=== PATIENT | male | born 1945 | race Caucasian/White ===

== ENCOUNTER → 2016-10-13 | Outpatient (CLI) | payer MEDICARE, OTHER ==
--- NOTE | 2016-10-13 16:50 | MRI ---
EXAM: Brain w/oContrast CLINICAL INDICATION: 71-year-old male with dementia. COMPARISON: None. TECHNIQUE: Multiplanar, multi-sequence MR imaging of the brain without contrast. FINDINGS: No abnormal increased signal intensity is present on diffusion-weighted imaging to suggest restricted diffusion/acute infarction. Minimal increased signal intensity present in a subcortical and periventricular deep white matter distribution, a nonspecific finding however may be seen with small vessel ischemic change. There is no evidence of intracranial hemorrhage, mass or edema. Midline structures are within normal limits. The ventricles and sulci are prominent compatible with global underlying volume loss slightly more prominent within the temporal parietal lobes. Major intracranial flow voids are identified. The paranasal sinuses and mastoid air cells are patent. IMPRESSION: 1. No abnormal increased signal intensity is present on diffusion-weighted imaging to suggest restricted diffusion/acute infarction. Electronically signed by: Beth Muhammad MD 10/13/2016 4:49 PM CDT
== END ==
LOC: MRI 08:52
PROVIDERS: ATTEND Family Medicine
DX: G45.9 Transient cerebral ischemic attack, unspecified (principal)

== ENCOUNTER → 2017-07-27 | Outpatient (CLI) | payer MEDICARE, OTHER | LOC: GMAJ 11:07 | PROVIDERS: ATTEND Family Medicine | DX: I10 Essential (primary) hypertension (principal) ==

== ENCOUNTER → 2018-09-08 | Outpatient (CLI) | payer MEDICARE, OTHER | LOC: GMAJ 11:10 | PROVIDERS: ATTEND Family Medicine | DX: I10 Essential (primary) hypertension (principal); Z12.5 Encounter for screening for malignant neoplasm of prostate | CPT/HCPCS: 84443; G0103 ==

== ENCOUNTER → 2019-07-26 | Outpatient (CLI) | payer MEDICARE, OTHER ==
--- NOTE | 2019-07-26 14:07 | MRI ---
EXAM DESCRIPTION: Cervical Spine: MRI. CLINICAL HISTORY: 74 years Male radiculopathy, cervical region COMPARISON: None. TECHNIQUE: Multiplanar, high-field MRI, multiple sequences, non-contrast Cervical spine. FINDINGS: C2-C3: Desiccation in the disc and disc space preserved. Small left uncinate spur and hypertrophic left facet arthrosis resulting in left neural foraminal stenosis. Hyperintense T2 annular fissure posterior right disc margin but no disc bulge. Canal and right neuroforamen are patent. Negative right facet joint. C3-C4: Disc desiccation with disc space preserved. Hypertrophic degenerated right facet joint. Left facet joint negative. Borderline right neural foraminal stenosis. Minimal thickening of the posterior ligaments. Mild canal narrowing. C4-C5: Disc desiccation and disc space preserved. Minimal anterior bulging. Trace anterolisthesis. No posterior bulging. Bilateral uncinate spurs. Minimal hypertrophy of the right facet and moderate neural foraminal narrowing. Significant hypertrophy of the left facet joint with left neural foraminal stenosis. Mild canal narrowing. C5-C6: Disc desiccation and disc space loss. Anterior bulging and endplate ridging. Trace retrolisthesis. Posterior disc osteophyte bulge abutting the cord. Minimal ligament thickening. Borderline central canal stenosis. Minimal bilateral facet arthrosis. Bilateral uncinate spurs. Bilateral neural foraminal stenosis. C6-C7: Moderate endplate reactive changes in the midline more than laterally with moderate disc space loss and desiccation. Anterior bulging and endplate ridging. Minimal posterior bulge with endplate spurs impressing on the cord and mild canal stenosis. Bilateral uncinate spurs. Minimal bilateral facet arthrosis with bilateral neural foraminal stenosis. C7-T1: Disc desiccation with no significant bulge. Hypertrophy and effusion in the left facet joint. Thickening of the posterior ligaments. Mild to moderate left neural foraminal narrowing and mild canal narrowing. Right neuroforamen is patent. T1-T2: Normal signal in the disc and disc space preserved. Trace anterolisthesis. Bilateral facet hypertrophic arthrosis and narrowing of the neural foramen mild on the right and moderate on the left. Canal is patent. T2-T3 disc desiccated and posterior bulge abutting the cord but no canal or neural foraminal stenosis. Spinal alignment abnormalities as noted with mid cervical kyphosis. No cord compression or cord edema. Atlantoaxial joint minimal arthrosis. Base of the cerebellar tonsils is at the level of the foramen magnum. Paravertebral soft tissues are unremarkable. Vertebral bodies are not compressed at any level. Otherwise normal marrow signal in the remaining vertebral bodies and the posterior elements. IMPRESSION: 1. Multiple levels of disc desiccation, endplate spondylosis and disc space loss, uncinate spur hypertrophy, and degenerative hypertrophy of the facet joints and posterior flavum ligaments. 2. Multifactorial left neural foraminal stenosis at C2-C3: Correlate for left C3 radiculopathy. Right posterior lateral annular fissure. 3. Multifactorial borderline right neural foraminal stenosis C3-C4. Correlate for right C4 radiculopathy. 4. Multifactorial left neural foraminal stenosis C4-C5. Correlate for left C5 radiculopathy. 5. Multifactorial borderline mild central canal stenosis at C5-C6. Bilateral multifactorial neural foraminal stenosis. Correlate for bilateral C6 radiculopathy. 6. posterior disc osteophyte bulge C6-C7 with mild central canal stenosis. Bilateral multifactorial neural foraminal stenosis. Correlate for bilateral C7 radiculopathy. Electronically signed by: Hugo Olivarez MD 07/26/2019 2:[address] [facility]
== END ==
LOC: MRI 09:00
PROVIDERS: ATTEND Family Medicine
DX: M54.12 Radiculopathy, cervical region (principal); M50.81 Other cervical disc disorders, high cervical region; M50.31 Other cervical disc degeneration, high cervical region; M50.321 Other cervical disc degeneration at C4-C5 level; M50.322 Other cervical disc degeneration at C5-C6 level; M50.323 Other cervical disc degeneration at C6-C7 level; M50.33 Other cervical disc degeneration, cervicothoracic region; M48.02 Spinal stenosis, cervical region; M47.892 Other spondylosis, cervical region; M25.78 Osteophyte, vertebrae; M24.28 Disorder of ligament, vertebrae